=== PATIENT | female | born 1975 | race Caucasian/White ===

== ENCOUNTER 2016-12-24 09:43 | Day surgery (SDC) | payer OTHER ==
[~2016-12-24 09:43] MED LIST: ESOM40CA PO; HYDR-2758 PO; HYDROmorphone 2 MG/ML VIAL IV PRN; IV RINGERS,LACTATED 1000ML 1,000 ML IV SCH; LIDOCAINE 1% 1 ML SYRINGE. ID PRN; MORPHINE SULFATE 2 MG/ML DISP.SYRIN. IV PRN; MULT-208 PO; ONDANSETRON PF 4 MG/2 ML VIAL. IV PRN; PROCHLORPERAZINE 10 MG/2 ML VIAL. IV PRN; fentaNYL PF VIAL 100 MCG/2 ML VIAL IV PRN
[2016-12-24] MEDS ORDERED: GLUCAGON,HUMAN RECOMBINANT 1 MG/ML VIAL. ONE (09:58)
[2016-12-24] MEDS ORDERED: IOHEXOL 300 MG/ML 50 ML VIAL. ONE (09:58)
[2016-12-24] MEDS ORDERED: SURGICEL HEMOSTAT 4X8 EACH. ONE (09:58)
[2016-12-24] MEDS ORDERED: BUPIVAC MPF-EPI 0.5%-1:200000 30 ML VIAL. ONE (09:59)
[2016-12-24] MEDS ORDERED: CEPH500C PO (10:22)
[2016-12-24 10:39] LABS: HEMATOCRIT 37.1 % (36.0-47.0); HEMOGLOBIN 12.5 g/dL (12.0-15.5); RED BLOOD COUNT 3.82 x10^6/uL (3.50-5.40); RED CELL DISTRIBUTION WIDTH 12.1 % (11.5-14.5); WHITE BLOOD COUNT 4.8 x10^3/uL (4.0-11.0)
[2016-12-24] MEDS ORDERED: ROCURONIUM 100 MG/10 ML VIAL. ONE (10:42)
[2016-12-24] MEDS ORDERED: fentaNYL PF VIAL 250 MCG/5 ML VIAL ONE (10:42)
[2016-12-24 10:47] LABS: CALCIUM 8.4 mg/dL (8.5-10.1); CREATININE 0.6 mg/dL (0.6-1.0); GFR 109.1; POTASSIUM 4.1 mmol/L (3.5-5.1)
[2016-12-24 10:53] LABS: TOTAL BILIRUBIN 0.8 mg/dL (0.2-1.0)
--- NOTE | 2016-12-24 12:05 | RAD ---
Intraoperative cholangiogram, 12/24/2016: History: Cholecystectomy 3 spot films from surgery are presented for review. Contrast was injected into the cystic duct remnant. 0.17 minutes of fluoroscopy time was utilized. There is good flow of contrast into the duodenum at the ampulla. There is no filling defect in the common duct to suggest a retained calculus. The incompletely opacified intrahepatic ducts are unremarkable. No contrast extravasation is seen. IMPRESSION: No significant abnormality is detected.
[2016-12-24] MEDS ORDERED: SEVOFLURANE 61 TO 120 MINUTES. IH ONE (12:16)
[2016-12-24] MEDS ORDERED: LIDOCAINE 2% PF Vial for OR 5 ML VIAL. ONE (12:16)
[2016-12-24] MEDS ORDERED: NEOSTIGMINE 10 MG/10 ML VIAL. ONE (12:16)
[2016-12-24] MEDS ORDERED: DEXAMETHASONE SOD PHOS 20 MG/5 ML VIAL. ONE (12:16)
[2016-12-24] MEDS ORDERED: PROPOFOL 20 ML IV ONE (12:16)
[2016-12-24] MEDS ORDERED: ONDANSETRON PF 4 MG/2 ML VIAL. ONE (12:16)
[2016-12-24] MEDS ORDERED: GLYCOPYRROLATE 1 MG/5 ML VIAL. ONE (12:17)
[2016-12-24] MEDS: fentaNYL PF VIAL 100 MCG/2 ML VIAL IV PRN ×2 (12:43→12:49)
[2016-12-24 13:16] LABS: NEG OBC UR NEG; POS OBC UR POS
--- NOTE | 2016-12-24 13:41 | PDOC ---
BRIEF OPERATIVE NOTE Date: Dec 24, 2016 Pre-Op Diagnosis biliary sludge Post-Op Diagnosis same Procedure Performed l/s cholecystectomy with cholangiograms Surgeon Richie Anesthesia Type: General Blood Loss 10cc IV Fluid 900cc Specimens Obtained GB Findings supple GB, normal grams Complications none OPerative Note Wk # [id number] SAYDA SINGH MD Dec 24, 2016 13:41
--- NOTE | 2016-12-24 13:42 | DISCH ---
DISCHARGE INSTRUCTIONS Condition on Discharge Condition on Discharge: Stable Activity After Discharge Activity Instructions for Disc: Activity as tolerated, Avoid exertion Lifting Instructions after Dis: No heavy lifting Driving Instructions after Dis: Do not drive today Diet after Discharge Diet after Discharge: Regular Wound Incision Care Wound/Incision Care: Ice to area for comfort Other wound/incision instructi: september shower Tuesday Follow-Up Follow up with: Richie next week in the [place] office SAYDA SINGH MD Dec 24, 2016 13:42
[2016-12-24] MEDS ORDERED: oxyCODONE/APAP 5/325 1 TAB TABLET PO PRN (13:45)
[2016-12-24 13:59] VITALS: BP 125/68
--- NOTE | 2016-12-24 15:29 | OP ---
DATE OF SURGERY: 12/24/2016 PREOPERATIVE DIAGNOSIS: Symptomatic gallbladder sludge. POSTOPERATIVE DIAGNOSIS: Symptomatic gallbladder sludge. PROCEDURE: Laparoscopic cholecystectomy with cholangiogram. SURGEON: Dr. Sayda Singh. ANESTHESIA: General endotracheal. ESTIMATED BLOOD LOSS: 10 mL. IV FLUIDS: 900 mL. INDICATIONS: This is a 41-year-old with postprandial epigastric and right upper quadrant pain. Ultrasound showed some sludge and possible non-shattering stones. She is brought for cholecystectomy. OPERATIVE FINDINGS: The liver was smooth and sharp. The gallbladder was supple. There were some omental adhesions along the inferior surface of the gallbladder. Visual inspection of the remainder of the abdomen failed to reveal obvious abnormalities. DESCRIPTION OF PROCEDURE: The patient brought to the operating suite, given a general endotracheal anesthetic and the abdomen prepped and draped in usual sterile fashion. An infraumbilical incision was made after infiltrating with local anesthetic and a 5-mm Visiport was used to gain access into the abdominal cavity, taking care to avoid injury to abdominal contents. Pneumoperitoneum was established. Camera inserted and inspection carried out with results as noted above. With the table in reverse Trendelenburg rolled to the left, the epigastric and midclavicular ports were placed under direct vision. The lateral port location was used for an "alligator" grasper. The gallbladder was retracted superolaterally and omental adhesions were carefully taken down with blunt and cautery dissection, taking care to avoid injury to the adjacent bowel. The cystic duct and cystic artery were identified. The cystic duct was clipped on the gallbladder side. Cholangiograms were made. These were normal. In light of this, the catheter was removed. The cystic duct was clipped x 3 and divided, taking care to avoid injury or compromise of the common duct. An anterior and posterior branch of the cystic artery were isolated, clipped, and divided and gallbladder freed from the bed with cautery dissection. Two-thirds up the fossa, a tertiary vessel was encountered, clipped, and divided and the gallbladder freed and placed in an EndoCatch bag. Liver bed checked for hemostasis and this was present. Table returned to level. Gallbladder delivered through the epigastric incision. Epigastric incision closed with interrupted 0 Vicryl suture. Intra-abdominal pressure decreased to 6 cm of water. No bleeding from the epigastric closure or from the midclavicular port site after its removal or from the site of the "alligator" grasper. Abdomen decompressed, camera slowly removed, no bleeding seen. Skin incisions closed with subcuticular 4-0 Monocryl. Steri-Strips and sterile dressings applied. The patient was awakened from her anesthetic and taken to the recovery room in satisfactory condition. SAYDA SINGH MD DR: CATIE/adrianne JOB#: [id number] / [id number]
--- NOTE | 2016-12-27 13:53 | PATHOLOGY ---
PATHOLOGY REPORT * * * * * * * * FINAL DIAGNOSIS: Gallbladder, laparoscopic cholecystectomy: - Cholelithiasis. - Chronic cholecystitis. - Reactive changes of pericystic duct lymph node. COMMENT: There is no evidence of malignancy. (JPM:pit; 12/27/2016) REPORT ELECTRONICALLY SIGNED BY: Mj Rushing M.D. DATE/TIME: 12/27/2016 13:52 * * * * * * * * GROSS PATHOLOGY: Received in formalin labeled "Hai Ley, gallbladder sac with contents," is a 6.7 x 3.0 x 2.2 cm, intact gallbladder with dark purple duke serosal surfaces. Opening the gallbladder reveals macias brown, velvety mucosa and an average wall thickness of 0.3 cm. Calculi are present and no masses are noted grossly. Product Mgmt Dev Manager sections from the body and fundus are submitted along with the proximal margin in cassette A1. (JPM; 12/24/16) INITIAL CPT CODE(S): A; 65391 Professional services performed [place] [address] Technical services performed by [facility] at [address] [place] [address]. SPECIMEN(S) RECEIVED: A.Gallbladder sac with contents CLINICAL HISTORY: Gallbladder sludge PATIENT: HAI LEY /AGE: 1003/12/1975 (Age: 41) PATIENT #: [id number] ALT CASE #: SPECIMEN COLLECTION DATE: 12/24/2016 SPECIMEN RECEIVED DATE: 12/24/2016 [facility] - [id number] [place] [address] - PHONE: [phone] * * * END OF REPORT * * *
== END 2016-12-24 14:37 | disposition home or self-care (01) ==
LOC: SURG 09:43
PROVIDERS: ATTEND Surgery
DX: K83.9 Disease of biliary tract, unspecified (principal); F32.9 Major depressive disorder, single episode, unspecified; K21.9 Gastro-esophageal reflux disease without esophagitis; Z87.39 Personal history of other diseases of the musculoskeletal system and connective tissue
CPT/HCPCS: 36415; 47563; 74300; 80048; 81025; 82040; 82247; 85027; J1100; J2001; J2405; J2704; J2710; J3010; J3490; J7030; Q9967; 88304; J0690; J1610